=== PATIENT | female | born 1970 | race Caucasian/White ===

== ENCOUNTER 2017-08-21 10:06 | Day surgery (SDC) | payer BC, MEDICARE, SELFPAY | END 2017-08-21 10:43 | disposition home or self-care (01) | PROVIDERS: Family Provider Family Medicine; Visit Provider Nurse Anesthetist, Certified Registered | DX: M51.16 Intervertebral disc disorders with radiculopathy, lumbar region (principal); M96.1 Postlaminectomy syndrome, not elsewhere classified | CPT/HCPCS: 62370 ==

== ENCOUNTER → 2017-09-25 13:31 | Day surgery (SDC) | payer MEDICARE, SELFPAY ==
[2017-09-25 14:01] VITALS: BP 188/75; PULSE 85; RESP 18; TEMP 36.9; O2SAT 94; BMI 35.9
[2017-09-25 14:47] VITALS: BP 158/86; PULSE 91; RESP 18; O2SAT 98
--- NOTE | 2017-09-25 14:48 | [facility].PMPROC ---
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 She is doing well with her intrathecal hydromorphone pain pump. She does have increased pain with increased activity. She would like an increase today. We will refill today and continue her at 1.5 mg per day. She does have an antalgic gait. Motor strength of the lower extremities is 5/5. There is no gross sensory deficit. Procedure Details:: Informed consent was obtained and the risks and benefits of the procedure was explained to the patient. The patient was taken to the procedure room. The pump was interrogated. The area over the pump was prepped using ChloraPrep. The pump was accessed with a 22-gauge needle. Approximately 10 mL's of the intrathecal solution was withdrawn and discarded. The pump was then refilled with 20 mL's of intrathecal hydromorphone 10 mg per ml. The pump was interrogated and the infusion was increased to 1.5 mg per day. The patient tolerated the procedure well with no complication. Plan and Disposition:: We will follow-up with her at her next pump refill. If she has any problems or questions she is to call me back in the pain clinic.
[2017-09-25 14:52] VITALS: BP 152/91; PULSE 90; RESP 18; O2SAT 98
[2017-09-25 15:03] VITALS: BP 154/95; PULSE 91; TEMP 36.9; O2SAT 97
[2017-09-25 15:12] VITALS: BP 171/99; PULSE 102; TEMP 36.9; O2SAT 97; BMI 32.5
== END ==
PROVIDERS: Family Provider Family Medicine; PCP Family Medicine; Visit Provider Anesthesiology
DX: M51.16 Intervertebral disc disorders with radiculopathy, lumbar region (principal); M96.1 Postlaminectomy syndrome, not elsewhere classified
CPT/HCPCS: 62370

== ENCOUNTER → 2018-05-11 13:36 | Outpatient (POV) | payer MEDICARE, BC, SELFPAY ==
[2018-05-11 13:52] VITALS: BP 122/65; PULSE 99; RESP 18; TEMP 36.7; O2SAT 99; BMI 36.8
--- NOTE | 2018-05-11 14:42 | [facility].PMPROC ---
- Procedure Date: 05/11/18 Time: 14:00 Anesthesiologist:: Esha Valdez APRN Complications:: None Pre-procedure Diagnosis:: Degenerative disc disease lumbar spine with lumbar radiculopathy Post-procedure Diagnosis:: Same Indications for Procedure:: Patient is a 47-year-old white female who presents today for intrathecal pain pump reprogram. Patient is currently on a Dilaudid and bupivacaine dose going at 2 mg a day +4 boluses which she utilizes every day making it 2.8 mg per day. Patient states that her pain has become worse. Patient also having a lot of neuropathic pain in her legs. Patient has been diagnosed with lupus and rheumatoid arthritis according to her. Patient is continuing with her professional housing consultant. We will make some changes to her intrathecal pump today. We will also start her on a trial dose of Lyrica to see if it is beneficial for her. Physical Exam General: Alert and oriented x3, no acute distress, pleasant and cooperative, [on room air] Lungs: Resps E/U, Symmetrical chest expansion, Eyes: PERRL Musculoskeletal: Flexion and extension of lumbar spine somewhat guarded secondary to pain, deep tendon reflexes normal, strength in upper and lower extremities [5/5], [abnormal gait noted] Neurological: speech clear, ichthyology teacher equal, no gross sensory deficits Procedure Details:: Informed consent was obtained and the risk and benefits of the procedure were explained to the patient. The patient was taken to the procedure room where noninvasive monitoring was placed including noninvasive blood pressure cuff and pulse oximeter. Patient's pump was interrogated. The infusion rate was changed to periodic flow of 0.25 mg every 2 hours. The patient tolerated the procedure well. Plan and Disposition:: I will follow-up with the patient at her next intrathecal pain pump refill and reprogram. Patient's been instructed to call the office if she has any issues prior to this. We will also call in Lyrica 75 mg 1 p.o. twice daily dispensing 28 for a 2 week trial patient is to call our office if this is beneficial for her. This note was dictated using voice recognition software and may contain errors or omissions
--- NOTE | 2018-05-11 14:45 | P.PCN_ITS ---
- Procedure Date: 05/11/18 Time: 14:00 Anesthesiologist:: Esha Valdez APRN Complications:: None Pre-procedure Diagnosis:: Degenerative disc disease lumbar spine with lumbar radiculopathy Post-procedure Diagnosis:: Same Indications for Procedure:: Patient is a 47-year-old white female who presents today for intrathecal pain pump reprogram. Patient is currently on a Dilaudid and bupivacaine dose going at 2 mg a day +4 boluses which she utilizes every day making it 2.8 mg per day. Patient states that her pain has become worse. Patient also having a lot of neuropathic pain in her legs. Patient has been diagnosed with lupus and rheumatoid arthritis according to her. Patient is continuing with her certified medical dosimetrist. We will make some changes to her intrathecal pump today. We will also start her on a trial dose of Lyrica to see if it is beneficial for her. Physical Exam General: Alert and oriented x3, no acute distress, pleasant and cooperative, [on room air] Lungs: Resps E/U, Symmetrical chest expansion, Eyes: PERRL Musculoskeletal: Flexion and extension of lumbar spine somewhat guarded secondary to pain, deep tendon reflexes normal, strength in upper and lower extremities [5/5], [abnormal gait noted] Neurological: speech clear, treatment manager equal, no gross sensory deficits Procedure Details:: Informed consent was obtained and the risk and benefits of the procedure were explained to the patient. The patient was taken to the procedure room where noninvasive monitoring was placed including noninvasive blood pressure cuff and pulse oximeter. Patient's pump was interrogated. The infusion rate was changed to periodic flow of 0.25 mg every 2 hours. The patient tolerated the procedure well. Plan and Disposition:: I will follow-up with the patient at her next intrathecal pain pump refill and reprogram. Patient's been instructed to call the office if she has any issues prior to this. We will also call in Lyrica 75 mg 1 p.o. twice daily dispensing 28 for a 2 week trial patient is to call our office if this is beneficial for her. This note was dictated using voice recognition software and may contain errors or omissions
== END ==
PROVIDERS: Family Provider Family Medicine; PCP Family Medicine; Visit Provider Clinical Nurse Specialist Family Health
DX: M51.16 Intervertebral disc disorders with radiculopathy, lumbar region (principal)
CPT/HCPCS: 62368

== ENCOUNTER → 2018-06-21 12:55 | Outpatient (POV) | payer MEDICARE, BC, MEDICAID, SELFPAY ==
[2018-06-21 13:07] VITALS: BP 151/98; PULSE 93; RESP 18; O2SAT 98; BMI 38.5
--- NOTE | 2018-06-21 14:03 | [facility].PMPROC ---
- Procedure Date: 06/21/18 Time: 12:15 Anesthesiologist:: Esha Valdez APRN Complications:: None Pre-procedure Diagnosis:: Degenerative disc disease lumbar spine with lumbar radiculopathy and postlaminectomy syndrome along with fibromyalgia Post-procedure Diagnosis:: same Indications for Procedure:: Patient is a pleasant 47-year-old white female who presents today for intrathecal pain pump reprogram. Rates the pain a 6 out of 10 today. Patient is doing well on her Lyrica. Patient states it helps with her fibromyalgia pain. Patient would like an increase in her intrathecal dose today. We will send her for UDS prior. Physical Exam General: Alert and oriented x3, no acute distress, pleasant and cooperative, [on room air] Lungs: Resps E/U, Symmetrical chest expansion, Eyes: PERRL Musculoskeletal: Flexion and extension of lumbar spine somewhat guarded secondary to pain, deep tendon reflexes normal, strength in upper and lower extremities [5/5], [abnormal gait noted] Neurological: speech clear, manufacturing technologist equal, no gross sensory deficits Procedure Details:: Informed consent was obtained and the risk and benefits of the procedure were explained to the patient. The patient was taken to the procedure room where noninvasive monitoring was placed including noninvasive blood pressure cuff and pulse oximeter. Patient's pump was interrogated. The infusion rate was increased to 0.4 mg every 2 hours for total daily to 4.8 mg of Dilaudid a day.. The patient tolerated the procedure well. Plan and Disposition:: We will see the patient back at the next refill. Patient will go for UDS today. If it is appropriate we will increase her Lyrica to 150 twice daily. This note was dictated using voice recognition software and may contain errors or omissions
[2018-06-21 17:44] LABS: Amphetamine/Metha Screen,Urine Negative ng/mL (<1000); Barbiturates Screen,Urine Negative ng/mL (<200); Benzodiazepines Screen,Urine Negative ng/mL (<200); Cannabinoid Screen,Urine Negative ng/mL (<50); Cocaine Screen,Urine Negative ng/mL (<300); Methadone Screen,Urine Negative ng/mL (<300); Opiate Screen,Urine Positive ng/mL (<300); Phencyclidine Screen,Urine Negative ng/mL (<25)
--- NOTE | 2018-06-25 14:41 | PC.NURSE ---
called in Rx for Lyrica 150mg BID with 2 refills to patients pharmacy per provider order.
[2018-06-27 01:12] LABS: Codeine Negative (Cutoff=100); Hydrocodone Negative (Cutoff=100); Hydromorphone Positive (.); Morphine Negative (Cutoff=100)
[2018-06-28 04:55] LABS: Opiates Positive (.)
[2018-07-13 11:52] LABS: Benzodiazepines Negative
[2018-07-13 11:53] LABS: Alprazolam Negative; Clonazepam Negative; Flurazepam Negative; Lorazepam Negative; Midazolam Negative; Temazepam Negative; Triazolam Negative
== END ==
PROVIDERS: Visit Provider Clinical Nurse Specialist Family Health
DX: M51.16 Intervertebral disc disorders with radiculopathy, lumbar region; M96.1 Postlaminectomy syndrome, not elsewhere classified; Z79.899 Other long term (current) drug therapy
CPT/HCPCS: 62368; 80305; 80346; 80361; 80365; G0480